=== PATIENT | female | born 1960 | race Caucasian/White ===

== ENCOUNTER 2016-06-18 19:05 | Inpatient (IN) | payer MEDICARE ==
[~2016-06-18] VITALS: Ht 180.3 cm; Wt 106.2 kg
[2016-06-18] VITALS (7 sets, daily range): O2SAT 91–96
[~2016-06-18 19:05] MED LIST: FOLIC ACID 11 MG/TA1 PO; LASIX 80MG TABL80 MG PO; LEVAQUIN 5500 MG/TA1 PO; LEVEMIR100 U/ML SQ; MULTIPLE VITAMI1 CAP PO; NEPHROCAP PO; NORCO 325 MG-51 TAB PO; NOVOLOG 100U100 U/M1 SQ; PRINIVIL40 MG PO; RENVELA800 MG PO; SENSIPAR30 MG PO; SENSIPAR60 MG PO; TYLENOL 325MG325 MG PO; VITAMIN C500 MG PO; ZESTRIL40 MG PO; ZOFRAN 4MG T4 MG/TAB PO; ZOLOFT 50MG50 MG PO
[2016-06-18] MEDS ORDERED: TAMIFLU 75MG75 MG PO (19:30)
[2016-06-18 20:18] LABS: BASO % 0.3 % (0.0-2.0); EOS % 0.6 % (0-4.0); GRAN # 4.4 (1.4-6.5); GRAN % 70.3 % (42.2-75.2); LYMPH # 1.1 (1.2-3.4); LYMPH % 16.8 % (20.0-51.0); MEAN CELL VOLUME 89 fl (80.0-100.0); MEAN CORPUSCULAR HGB CONC 33 g/dl (33.0-37.0); MEAN PLATELET VOLUME 9.5 fl (7.4-10.4); MONO # 0.7 (0.1-0.6); MONO % 11.7 % (1.7-9.3); PLATELET COUNT 220 K/mm3 (130-400); RED BLOOD COUNT 3.18 M/mm3 (4.10-5.30); REDCELL DISTRIBUTION WIDTH-CV 14.7 % (11.5-14.5); WHITE BLOOD COUNT 6.3 K/mm3 (4.8-10.8)
[2016-06-18 20:21] LABS: HEMATOCRIT 28.3 % (37.0-47.0); HEMOGLOBIN 9.3 g/dl (12.5-16.0); MEAN CORPUSCULAR HEMOGLOBIN 29 pg (27.0-31.0)
[2016-06-18 20:29] LABS: ADJUSTED CALCIUM 9.6 mg/dL (8.4-10.2); ALBUMIN 3.9 gm/dL (3.5-5.0); CALCIUM 9.5 mg/dL (8.4-10.2); CREATININE, serum 3.83 mg/dL (0.52-1.25); MAGNESIUM 1.9 mg/dL (1.6-2.3); PHOSPHOROUS 2.7 mg/dL (2.5-4.5); POTASSIUM 3.3 mmol/L (3.4-5.0); TOTAL PROTEIN 8.4 gm/dL (6.4-8.2)
[2016-06-18 20:48] LABS: TROPONIN-I 0.054 ng/mL (0.000-0.034)
[2016-06-19] VITALS (786 sets, daily range): BP systolic 115–167; BP diastolic 76–94; PULSE 70–126; TEMP 97–98.1; O2SAT 58–100
[2016-06-19 06:14] LABS: BASO % 0.4 % (0.0-2.0); EOS # 0.1 (0.0-0.7); EOS % 1.3 % (0-4.0); GRAN # 3.2 (1.4-6.5); LYMPH # 0.9 (1.2-3.4); LYMPH % 19.8 % (20.0-51.0); MEAN CELL VOLUME 90 fl (80.0-100.0); MEAN CORPUSCULAR HGB CONC 33 g/dl (33.0-37.0); MEAN PLATELET VOLUME 9.4 fl (7.4-10.4); MONO # 0.5 (0.1-0.6); MONO % 11.3 % (1.7-9.3); PLATELET COUNT 199 K/mm3 (130-400); RED BLOOD COUNT 3.05 M/mm3 (4.10-5.30); WHITE BLOOD COUNT 4.7 K/mm3 (4.8-10.8)
[2016-06-19 06:23] LABS: HEMATOCRIT 27.3 % (37.0-47.0); HEMOGLOBIN 8.9 g/dl (12.5-16.0); MEAN CORPUSCULAR HEMOGLOBIN 29 pg (27.0-31.0)
[2016-06-19 06:25] LABS: CALCIUM 9.2 mg/dL (8.4-10.2)
[2016-06-19 06:26] LABS: CREATININE, serum 4.31 mg/dL (0.52-1.25)
[2016-06-20] VITALS (557 sets, daily range): BP systolic 99–130; BP diastolic 59–97; PULSE 54–96; TEMP 97–98.8; O2SAT 78–100
[2016-06-20 05:55] LABS: INR 1.8 (0.8-3.0); PROTHROMBIN TIME 20.1 SECONDS (9.7-12.8)
[2016-06-20 05:58] LABS: PARTIAL THROMBOPLASTIN TIME 41.8 SECONDS (26.0-37.0)
[2016-06-20 06:04] LABS: BASO % 0.6 % (0.0-2.0); CALCIUM 8.2 mg/dL (8.4-10.2); CREATININE, serum 3.69 mg/dL (0.52-1.25); EOS # 0.1 (0.0-0.7); EOS % 1.1 % (0-4.0); GRAN # 3.1 (1.4-6.5); GRAN % 66.7 % (42.2-75.2); LYMPH # 0.8 (1.2-3.4); LYMPH % 17.1 % (20.0-51.0); MEAN CELL VOLUME 91 fl (80.0-100.0); MEAN CORPUSCULAR HGB CONC 32 g/dl (33.0-37.0); MEAN PLATELET VOLUME 9.9 fl (7.4-10.4); MONO # 0.7 (0.1-0.6); MONO % 14.3 % (1.7-9.3); PLATELET COUNT 195 K/mm3 (130-400); POTASSIUM 3.5 mmol/L (3.4-5.0); RED BLOOD COUNT 3.07 M/mm3 (4.10-5.30); REDCELL DISTRIBUTION WIDTH-CV 14.9 % (11.5-14.5); WHITE BLOOD COUNT 4.6 K/mm3 (4.8-10.8)
[2016-06-20 06:17] LABS: HEMATOCRIT 27.9 % (37.0-47.0); HEMOGLOBIN 8.9 g/dl (12.5-16.0); MEAN CORPUSCULAR HEMOGLOBIN 29 pg (27.0-31.0)
[2016-06-21] VITALS (737 sets, daily range): BP systolic 104–134; BP diastolic 48–77; PULSE 72–99; TEMP 96.9–98.1; O2SAT 72–100
[2016-06-21 06:25] LABS: ALBUMIN 3.4 gm/dL (3.5-5.0); CALCIUM 8.1 mg/dL (8.4-10.2); CREATININE, serum 2.91 mg/dL (0.52-1.25); PHOSPHOROUS 2.5 mg/dL (2.5-4.5); POTASSIUM 3.8 mmol/L (3.4-5.0)
[2016-06-22] VITALS (475 sets, daily range): BP systolic 93–127; BP diastolic 59–73; PULSE 77–109; TEMP 96.6–98.3; O2SAT 82–100
[2016-06-22 06:18] LABS: ALBUMIN 3.5 gm/dL (3.5-5.0); PHOSPHOROUS 1.8 mg/dL (2.5-4.5); POTASSIUM 3.7 mmol/L (3.4-5.0)
[2016-06-22 06:30] LABS: CREATININE, serum 3.93 mg/dL (0.52-1.25)
[2016-06-23 00:20] VITALS: BP 117/59; PULSE 103; TEMP 98.4
[2016-06-23 03:56] VITALS: BP 108/52; PULSE 106; TEMP 98.1
[2016-06-23 07:21] VITALS: BP 121/64; PULSE 107; TEMP 97.6
[2016-06-23 07:47] LABS: BASO % 0.5 % (0.0-2.0); EOS % 0.6 % (0-4.0); GRAN # 4.6 (1.4-6.5); GRAN % 71.5 % (42.2-75.2); LYMPH # 0.9 (1.2-3.4); LYMPH % 13.7 % (20.0-51.0); MEAN CELL VOLUME 90 fl (80.0-100.0); MEAN CORPUSCULAR HGB CONC 32 g/dl (33.0-37.0); MEAN PLATELET VOLUME 10.4 fl (7.4-10.4); MONO # 0.8 (0.1-0.6); MONO % 13.1 % (1.7-9.3); PLATELET COUNT 194 K/mm3 (130-400); RED BLOOD COUNT 2.81 M/mm3 (4.10-5.30); REDCELL DISTRIBUTION WIDTH-CV 15.3 % (11.5-14.5); WHITE BLOOD COUNT 6.4 K/mm3 (4.8-10.8)
[2016-06-23 07:58] LABS: ALBUMIN 3.2 gm/dL (3.5-5.0); CALCIUM 7.8 mg/dL (8.4-10.2); CREATININE, serum 3.58 mg/dL (0.52-1.25); PHOSPHOROUS 1.8 mg/dL (2.5-4.5); POTASSIUM 3.5 mmol/L (3.4-5.0)
[2016-06-23 08:01] LABS: HEMATOCRIT 25.2 % (37.0-47.0); HEMOGLOBIN 8.1 g/dl (12.5-16.0); MEAN CORPUSCULAR HEMOGLOBIN 29 pg (27.0-31.0)
[2016-06-23 11:10] VITALS: BP 103/62; PULSE 80; TEMP 97.8
[2016-06-23 16:09] VITALS: BP 109/62; PULSE 68; PULSE 88; TEMP 97.9
[2016-06-23 18:03] LABS: PH 8 (5-8); URINE APPEARANCE Turbid; URINE COLOR Straw; URINE GLUCOSE Negative (NEGATIVE)
[2016-06-23 18:04] LABS: URINE BILIRUBIN Negative (NEGATIVE); URINE BLOOD 3+ (NEGATIVE); URINE KETONE Negative (NEGATIVE); URINE UROBILINOGEN Negative (NEGATIVE)
[2016-06-23 18:05] LABS: URINE RBC >50 /hpf; URINE WBC >50 /hpf
[2016-06-23 18:06] LABS: SQUAMOUS EPITHELIAL 0-2 /hpf; URINE BACTERIA Occasional /hpf
[2016-06-23 19:34] VITALS: BP 124/62; PULSE 108; TEMP 97.9
[2016-06-24 00:31] VITALS: BP 122/70; PULSE 106; TEMP 98
[2016-06-24 03:39] VITALS: BP 125/69; PULSE 105; TEMP 96.9
[2016-06-24 07:42] LABS: BASO % 0.6 % (0.0-2.0); EOS # 0.1 (0.0-0.7); EOS % 0.9 % (0-4.0); GRAN # 4.6 (1.4-6.5); GRAN % 72.4 % (42.2-75.2); LYMPH # 0.9 (1.2-3.4); LYMPH % 14.6 % (20.0-51.0); MEAN CELL VOLUME 89 fl (80.0-100.0); MEAN CORPUSCULAR HGB CONC 32 g/dl (33.0-37.0); MEAN PLATELET VOLUME 10.7 fl (7.4-10.4); MONO # 0.7 (0.1-0.6); MONO % 10.7 % (1.7-9.3); PLATELET COUNT 217 K/mm3 (130-400); RED BLOOD COUNT 2.92 M/mm3 (4.10-5.30); REDCELL DISTRIBUTION WIDTH-CV 15.6 % (11.5-14.5); WHITE BLOOD COUNT 6.4 K/mm3 (4.8-10.8)
[2016-06-24 07:56] LABS: ALBUMIN 3.5 gm/dL (3.5-5.0); CALCIUM 7.6 mg/dL (8.4-10.2); PHOSPHOROUS 2.1 mg/dL (2.5-4.5); POTASSIUM 3.7 mmol/L (3.4-5.0)
[2016-06-24 07:57] LABS: CREATININE, serum 4.53 mg/dL (0.52-1.25)
[2016-06-24 08:15] LABS: HEMATOCRIT 25.9 % (37.0-47.0); HEMOGLOBIN 8.4 g/dl (12.5-16.0); MEAN CORPUSCULAR HEMOGLOBIN 29 pg (27.0-31.0)
[2016-06-24 11:07] VITALS: BP 134/70; PULSE 102; TEMP 97.1
[2016-06-24 16:49] VITALS: BP 103/57; PULSE 100; TEMP 98.3
[2016-06-24 20:54] VITALS: BP 115/62; PULSE 104; TEMP 97.9
[2016-06-25] VITALS (7 sets, daily range): BP systolic 93–126; BP diastolic 42–84; PULSE 102–106; TEMP 97.4–98
[2016-06-25 07:44] LABS: BASO % 0.5 % (0.0-2.0); EOS # 0.1 (0.0-0.7); EOS % 1.1 % (0-4.0); GRAN # 4.6 (1.4-6.5); LYMPH # 0.9 (1.2-3.4); LYMPH % 13.5 % (20.0-51.0); MEAN CELL VOLUME 89 fl (80.0-100.0); MEAN CORPUSCULAR HGB CONC 32 g/dl (33.0-37.0); MEAN PLATELET VOLUME 10.7 fl (7.4-10.4); MONO # 0.8 (0.1-0.6); MONO % 12.8 % (1.7-9.3); PLATELET COUNT 216 K/mm3 (130-400); RED BLOOD COUNT 2.83 M/mm3 (4.10-5.30); REDCELL DISTRIBUTION WIDTH-CV 15.9 % (11.5-14.5); WHITE BLOOD COUNT 6.5 K/mm3 (4.8-10.8)
[2016-06-25 08:05] LABS: HEMATOCRIT 25.1 % (37.0-47.0); HEMOGLOBIN 8.1 g/dl (12.5-16.0); MEAN CORPUSCULAR HEMOGLOBIN 29 pg (27.0-31.0)
[2016-06-25 08:08] LABS: ALBUMIN 3.4 gm/dL (3.5-5.0); CALCIUM 7.5 mg/dL (8.4-10.2); CREATININE, serum 3.53 mg/dL (0.52-1.25); PHOSPHOROUS 2.5 mg/dL (2.5-4.5); POTASSIUM 4.1 mmol/L (3.4-5.0)
[2016-06-26 04:32] VITALS: BP 119/58; PULSE 104; TEMP 97.6
[2016-06-26 07:36] VITALS: BP 117/53; PULSE 104; TEMP 97.9
[2016-06-26 07:51] LABS: BASO % 0.3 % (0.0-2.0); EOS # 0.1 (0.0-0.7); EOS % 0.8 % (0-4.0); GRAN # 4.4 (1.4-6.5); LYMPH # 0.8 (1.2-3.4); LYMPH % 13.2 % (20.0-51.0); MEAN CELL VOLUME 88 fl (80.0-100.0); MEAN CORPUSCULAR HGB CONC 32 g/dl (33.0-37.0); MEAN PLATELET VOLUME 10.1 fl (7.4-10.4); MONO # 0.7 (0.1-0.6); PLATELET COUNT 214 K/mm3 (130-400); RED BLOOD COUNT 2.93 M/mm3 (4.10-5.30); REDCELL DISTRIBUTION WIDTH-CV 16.2 % (11.5-14.5); WHITE BLOOD COUNT 6.1 K/mm3 (4.8-10.8)
[2016-06-26 07:57] LABS: HEMATOCRIT 25.9 % (37.0-47.0); HEMOGLOBIN 8.3 g/dl (12.5-16.0); MEAN CORPUSCULAR HEMOGLOBIN 28 pg (27.0-31.0)
[2016-06-26 08:09] LABS: ALBUMIN 3.5 gm/dL (3.5-5.0); CALCIUM 7.6 mg/dL (8.4-10.2); POTASSIUM 4.4 mmol/L (3.4-5.0)
[2016-06-26 08:10] LABS: CREATININE, serum 4.4 mg/dL (0.52-1.25)
[2016-06-26 11:45] VITALS: BP 129/61; PULSE 103; TEMP 97.4
[2016-06-26 15:06] VITALS: BP 101/54; PULSE 103; TEMP 97.8
[2016-06-26 20:00] VITALS: BP 120/59; PULSE 103; TEMP 97.5
[2016-06-27 00:04] VITALS: BP 115/70; PULSE 103; TEMP 97.7
[2016-06-27 03:51] VITALS: BP 127/72; PULSE 102; TEMP 97.8
[2016-06-27 07:09] LABS: BASO % 0.3 % (0.0-2.0); EOS # 0.1 (0.0-0.7); EOS % 0.8 % (0-4.0); GRAN # 4.5 (1.4-6.5); GRAN % 71.8 % (42.2-75.2); LYMPH # 0.8 (1.2-3.4); LYMPH % 13.2 % (20.0-51.0); MEAN CELL VOLUME 87 fl (80.0-100.0); MEAN CORPUSCULAR HGB CONC 32 g/dl (33.0-37.0); MEAN PLATELET VOLUME 10.1 fl (7.4-10.4); MONO # 0.8 (0.1-0.6); MONO % 13.3 % (1.7-9.3); PLATELET COUNT 218 K/mm3 (130-400); RED BLOOD COUNT 2.97 M/mm3 (4.10-5.30); WHITE BLOOD COUNT 6.3 K/mm3 (4.8-10.8)
[2016-06-27 07:26] LABS: ALBUMIN 3.6 gm/dL (3.5-5.0); CALCIUM 7.5 mg/dL (8.4-10.2); POTASSIUM 4.8 mmol/L (3.4-5.0)
[2016-06-27 07:56] LABS: HEMATOCRIT 25.9 % (37.0-47.0); HEMOGLOBIN 8.4 g/dl (12.5-16.0); MEAN CORPUSCULAR HEMOGLOBIN 28 pg (27.0-31.0)
[2016-06-27 07:59] VITALS: BP 125/65; PULSE 101; TEMP 97.7
[2016-06-27 08:00] LABS: CREATININE, serum 5.45 mg/dL (0.52-1.25)
[2016-06-27 09:56] VITALS: BP 116/62
[2016-06-27] MEDS ORDERED: NORMODYNE200 MG PO (10:13)
[2016-06-27] MEDS ORDERED: ELIQUIS 5MG PO (10:13)
[2016-06-27] MEDS ORDERED: ZESTRIL2.5 MG PO (10:14)
[2016-06-27] MEDS ORDERED: TIAZAC240 MG PO (10:15)
[2016-06-27 12:21] VITALS: BP 128/74; PULSE 100; TEMP 97.6
== END 2016-06-27 17:40 | disposition home or self-care (01) | DRG 308 ==
LOC: COL.ER 19:05 → IMCU 22:48 → MEDICAL 06-22 15:23
PROVIDERS: Emergency Medicine; Internal Medicine; Internal Medicine Cardiovascular Disease; Internal Medicine Nephrology
PROC: 5A1D60Z (ICD-10-PCS; principal; 2016-06-19)
DX: I48.92 Unspecified atrial flutter (principal); N18.6 End stage renal disease; I12.0 Hypertensive chronic kidney disease with stage 5 chronic kidney disease or end stage renal disease; N39.0 Urinary tract infection, site not specified; I48.91 Unspecified atrial fibrillation; E11.22 Type 2 diabetes mellitus with diabetic chronic kidney disease; Z99.2 Dependence on renal dialysis; Z87.891 Personal history of nicotine dependence; Z79.4 Long term (current) use of insulin; E83.39 Other disorders of phosphorus metabolism; I51.3 Intracardiac thrombosis, not elsewhere classified; J11.1 Influenza due to unidentified influenza virus with other respiratory manifestations
CPT/HCPCS: G9654; J0153; J0882; J1650; J1815; J2250; J2704; J2916; J3010; J7050; Q9967

== ENCOUNTER 2016-07-08 16:23 | Inpatient (IN) | payer MEDICARE, MEDICAID ==
[~2016-07-08] VITALS: Ht 180.3 cm; Wt 100.8 kg
[~2016-07-08 16:23] MED LIST changes: +ELIQUIS 5MG PO; +NORMODYNE200 MG PO; +TAMIFLU 75MG75 MG PO; +TIAZAC240 MG PO; +ZESTRIL2.5 MG PO
[2016-07-08 17:12] LABS: BASO % 0.3 % (0.0-2.0); EOS # 0.1 (0.0-0.7); EOS % 0.8 % (0-4.0); GRAN # 4.8 (1.4-6.5); GRAN % 79.5 % (42.2-75.2); LYMPH # 0.7 (1.2-3.4); LYMPH % 11.7 % (20.0-51.0); MEAN CELL VOLUME 92 fl (80.0-100.0); MEAN CORPUSCULAR HGB CONC 32 g/dl (33.0-37.0); MEAN PLATELET VOLUME 9.8 fl (7.4-10.4); MONO # 0.5 (0.1-0.6); MONO % 7.4 % (1.7-9.3); PLATELET COUNT 192 K/mm3 (130-400); RED BLOOD COUNT 3.03 M/mm3 (4.10-5.30); REDCELL DISTRIBUTION WIDTH-CV 16.9 % (11.5-14.5); WHITE BLOOD COUNT 6.1 K/mm3 (4.8-10.8)
[2016-07-08 17:13] LABS: HEMATOCRIT 27.9 % (37.0-47.0); HEMOGLOBIN 8.9 g/dl (12.5-16.0); MEAN CORPUSCULAR HEMOGLOBIN 29 pg (27.0-31.0)
[2016-07-08 17:23] LABS: ADJUSTED CALCIUM 7.7 mg/dL (8.4-10.2); BILIRUBIN,TOTAL 1.9 mg/dL (0.0-1.0); CALCIUM 7.7 mg/dL (8.4-10.2); CREATININE, serum 2.74 mg/dL (0.52-1.25); MAGNESIUM 1.7 mg/dL (1.6-2.3); PHOSPHOROUS 2.6 mg/dL (2.5-4.5); POTASSIUM 3.8 mmol/L (3.4-5.0); TOTAL PROTEIN 8.5 gm/dL (6.4-8.2)
[2016-07-08 21:03] VITALS: BP 134/72; PULSE 113; TEMP 98.2
[2016-07-09 00:20] VITALS: BP 135/74; PULSE 111; TEMP 97.7
[2016-07-09 04:10] VITALS: BP 136/68; PULSE 110; TEMP 97.2
[2016-07-09 11:30] VITALS: BP 137/71; PULSE 109; TEMP 97.7
[2016-07-09 13:17] LABS: BASO % 0.4 % (0.0-2.0); EOS # 0.1 (0.0-0.7); EOS % 1.8 % (0-4.0); GRAN # 3.3 (1.4-6.5); GRAN % 74.1 % (42.2-75.2); LYMPH # 0.7 (1.2-3.4); MEAN CELL VOLUME 95 fl (80.0-100.0); MEAN CORPUSCULAR HGB CONC 31 g/dl (33.0-37.0); MEAN PLATELET VOLUME 9.7 fl (7.4-10.4); MONO # 0.4 (0.1-0.6); MONO % 8.5 % (1.7-9.3); PLATELET COUNT 179 K/mm3 (130-400); WHITE BLOOD COUNT 4.5 K/mm3 (4.8-10.8)
[2016-07-09 13:20] LABS: HEMATOCRIT 28.4 % (37.0-47.0); HEMOGLOBIN 8.9 g/dl (12.5-16.0); MEAN CORPUSCULAR HEMOGLOBIN 30 pg (27.0-31.0)
[2016-07-09 13:52] LABS: ALBUMIN 3.8 gm/dL (3.5-5.0); CALCIUM 8.4 mg/dL (8.4-10.2); CREATININE, serum 1.81 mg/dL (0.52-1.25); PHOSPHOROUS 2.6 mg/dL (2.5-4.5); POTASSIUM 3.6 mmol/L (3.4-5.0)
[2016-07-09 16:27] VITALS: BP 132/67; PULSE 107; TEMP 97.4
[2016-07-09 20:09] VITALS: BP 118/59; PULSE 108; TEMP 97.6
[2016-07-10 00:22] VITALS: BP 123/77; PULSE 109; TEMP 98.3
[2016-07-10 03:22] VITALS: BP 125/76; PULSE 108; TEMP 98.1
[2016-07-10 08:03] LABS: BASO % 0.4 % (0.0-2.0); EOS # 0.1 (0.0-0.7); EOS % 1.8 % (0-4.0); GRAN # 3.6 (1.4-6.5); GRAN % 74.1 % (42.2-75.2); LYMPH # 0.8 (1.2-3.4); LYMPH % 15.5 % (20.0-51.0); MEAN CELL VOLUME 94 fl (80.0-100.0); MEAN CORPUSCULAR HGB CONC 31 g/dl (33.0-37.0); MEAN PLATELET VOLUME 10.1 fl (7.4-10.4); MONO # 0.4 (0.1-0.6); MONO % 7.8 % (1.7-9.3); PLATELET COUNT 176 K/mm3 (130-400); REDCELL DISTRIBUTION WIDTH-CV 17.1 % (11.5-14.5); WHITE BLOOD COUNT 4.9 K/mm3 (4.8-10.8)
[2016-07-10 08:05] LABS: HEMATOCRIT 28.3 % (37.0-47.0); HEMOGLOBIN 8.9 g/dl (12.5-16.0); MEAN CORPUSCULAR HEMOGLOBIN 30 pg (27.0-31.0)
[2016-07-10 08:13] LABS: ALBUMIN 3.6 gm/dL (3.5-5.0); CALCIUM 8.1 mg/dL (8.4-10.2); CREATININE, serum 3.04 mg/dL (0.52-1.25); PHOSPHOROUS 3.6 mg/dL (2.5-4.5); POTASSIUM 4.3 mmol/L (3.4-5.0)
[2016-07-10 11:15] VITALS: BP 144/89; PULSE 111; TEMP 97.9
== END 2016-07-10 12:25 | disposition home or self-care (01) | DRG 640 ==
LOC: COL.ER 16:23 → MEDICAL 19:18
PROVIDERS: Family Medicine; Internal Medicine Nephrology
PROC: 5A1D60Z (ICD-10-PCS; principal; 2016-07-09)
DX: E87.70 Fluid overload, unspecified (principal); N18.6 End stage renal disease; I12.0 Hypertensive chronic kidney disease with stage 5 chronic kidney disease or end stage renal disease; E11.22 Type 2 diabetes mellitus with diabetic chronic kidney disease; I48.91 Unspecified atrial fibrillation; D63.1 Anemia in chronic kidney disease; E83.51 Hypocalcemia; R20.0 Anesthesia of skin; E83.39 Other disorders of phosphorus metabolism; Z89.512 Acquired absence of left leg below knee; Z87.891 Personal history of nicotine dependence; Z79.4 Long term (current) use of insulin; Z99.2 Dependence on renal dialysis
CPT/HCPCS: J0882; J1815; J2405; J7030; Q9967

== ENCOUNTER 2016-07-28 07:58 | Inpatient (IN) | payer MEDICARE ==
[2016-07-28] VITALS (11 sets, daily range): BP systolic 105–136; BP diastolic 59–78; PULSE 72–113; TEMP 97.4–98.6
[~2016-07-28] VITALS: Ht 180.3 cm; Wt 100.2 kg
[2016-07-28 08:41] LABS: BASO % 0.6 % (0.0-2.0); EOS % 0.3 % (0-4.0); GRAN # 2.5 (1.4-6.5); GRAN % 70.4 % (42.2-75.2); LYMPH # 0.5 (1.2-3.4); LYMPH % 14.2 % (20.0-51.0); MEAN CELL VOLUME 93 fl (80.0-100.0); MEAN CORPUSCULAR HGB CONC 33 g/dl (33.0-37.0); MEAN PLATELET VOLUME 9.9 fl (7.4-10.4); MONO # 0.5 (0.1-0.6); MONO % 14.2 % (1.7-9.3); PLATELET COUNT 187 K/mm3 (130-400); RED BLOOD COUNT 2.71 M/mm3 (4.10-5.30); REDCELL DISTRIBUTION WIDTH-CV 16.4 % (11.5-14.5); WHITE BLOOD COUNT 3.6 K/mm3 (4.8-10.8)
[2016-07-28 08:42] LABS: HEMATOCRIT 25.2 % (37.0-47.0); HEMOGLOBIN 8.2 g/dl (12.5-16.0); MEAN CORPUSCULAR HEMOGLOBIN 30 pg (27.0-31.0)
[2016-07-28] MEDS ORDERED: ZESTRIL40 MG PO (08:44)
[2016-07-28 08:48] LABS: CALCIUM 8.2 mg/dL (8.4-10.2); CREATININE, serum 3.43 mg/dL (0.52-1.25); POTASSIUM 3.5 mmol/L (3.4-5.0)
[2016-07-28 09:16] LABS: INR 1.8 (0.8-3.0); PROTHROMBIN TIME 20.7 SECONDS (9.7-12.8)
[2016-07-28 13:21] LABS: ALBUMIN 3.3 gm/dL (3.5-5.0); BILIRUBIN,TOTAL 2.5 mg/dL (0.0-1.0); MAGNESIUM 1.6 mg/dL (1.6-2.3); TOTAL PROTEIN 7.4 gm/dL (6.4-8.2)
[2016-07-28 13:37] LABS: BILIRUBIN,DIRECT 1.9 mg/dL (0.0-0.4)
[2016-07-29 03:39] VITALS: BP 120/61; PULSE 79; TEMP 98.2
[2016-07-29 07:23] LABS: INR 1.7 (0.8-3.0); PROTHROMBIN TIME 18.7 SECONDS (9.7-12.8)
[2016-07-29 07:24] VITALS: BP 123/61; PULSE 71
[2016-07-29 07:28] LABS: MEAN CELL VOLUME 95 fl (80.0-100.0); MEAN CORPUSCULAR HGB CONC 31 g/dl (33.0-37.0); MEAN PLATELET VOLUME 10.5 fl (7.4-10.4); PLATELET COUNT 178 K/mm3 (130-400); RED BLOOD COUNT 2.89 M/mm3 (4.10-5.30); REDCELL DISTRIBUTION WIDTH-CV 16.4 % (11.5-14.5); WHITE BLOOD COUNT 4.1 K/mm3 (4.8-10.8)
[2016-07-29 07:30] LABS: HEMATOCRIT 27.4 % (37.0-47.0); HEMOGLOBIN 8.5 g/dl (12.5-16.0); MEAN CORPUSCULAR HEMOGLOBIN 29 pg (27.0-31.0)
[2016-07-29 11:15] VITALS: BP 97/52; PULSE 69; TEMP 98
[2016-07-29 19:23] VITALS: BP 131/62; PULSE 76; TEMP 98.1
[2016-07-29 23:39] VITALS: BP 122/73; PULSE 72; TEMP 97.9
[2016-07-30 03:55] VITALS: BP 119/62; PULSE 68; TEMP 98.3
[2016-07-30 07:48] LABS: MEAN CELL VOLUME 96 fl (80.0-100.0); MEAN CORPUSCULAR HGB CONC 31 g/dl (33.0-37.0); MEAN PLATELET VOLUME 10.5 fl (7.4-10.4); PLATELET COUNT 168 K/mm3 (130-400); RED BLOOD COUNT 2.89 M/mm3 (4.10-5.30); REDCELL DISTRIBUTION WIDTH-CV 16.2 % (11.5-14.5); WHITE BLOOD COUNT 3.5 K/mm3 (4.8-10.8)
[2016-07-30 08:01] LABS: INR 1.6 (0.8-3.0); PROTHROMBIN TIME 18.5 SECONDS (9.7-12.8)
[2016-07-30 08:04] LABS: HEMATOCRIT 27.7 % (37.0-47.0); HEMOGLOBIN 8.7 g/dl (12.5-16.0); MEAN CORPUSCULAR HEMOGLOBIN 30 pg (27.0-31.0)
[2016-07-30 08:15] VITALS: BP 128/66; PULSE 66; TEMP 97.8
[2016-07-30 08:21] LABS: CALCIUM 8.1 mg/dL (8.4-10.2); CREATININE, serum 3.85 mg/dL (0.52-1.25); POTASSIUM 4.1 mmol/L (3.4-5.0)
[2016-07-30] MEDS ORDERED: BETAPACE 80MG80 MG PO (11:53)
[2016-07-30] MEDS ORDERED: IMODIUM A-D2 MG PO (11:54)
[2016-07-30 12:07] VITALS: BP 116/64; PULSE 66; TEMP 97.8
== END 2016-07-30 14:02 | disposition home or self-care (01) | DRG 308 ==
LOC: EUO 07:58 → COL.RAD 08:00 → EUO 08:00 → MEDICAL 11:49 → EUO 12:25 → MEDICAL 07-30 14:02
PROVIDERS: Internal Medicine Cardiovascular Disease
PROC: 5A1D00Z (ICD-10-PCS; principal; 2016-07-29)
DX: I48.0 Paroxysmal atrial fibrillation (principal); N18.6 End stage renal disease; I12.0 Hypertensive chronic kidney disease with stage 5 chronic kidney disease or end stage renal disease; E11.22 Type 2 diabetes mellitus with diabetic chronic kidney disease; D63.1 Anemia in chronic kidney disease; Z99.2 Dependence on renal dialysis; Z82.49 Family history of ischemic heart disease and other diseases of the circulatory system; Z87.891 Personal history of nicotine dependence; Z89.512 Acquired absence of left leg below knee
CPT/HCPCS: J1815; J2250; J2704; J3010

== ENCOUNTER 2016-12-05 15:07 | Inpatient (IN) | payer MEDICARE ==
[~2016-12-05] VITALS: Ht 180.3 cm; Wt 101.8 kg
[~2016-12-05 15:07] MED LIST changes: +BETAPACE 80MG80 MG PO; +IMODIUM A-D2 MG PO
[2016-12-05] MEDS ORDERED: NORVASC 10MG10 MG PO (15:26)
[2016-12-05] MEDS ORDERED: PRILOSEC 20MG20 MG PO (15:27)
[2016-12-05] MEDS ORDERED: NORMODYNE200 MG PO (15:29)
[2016-12-05] MEDS ORDERED: ELIQUIS 5MG PO (15:30)
[2016-12-05 15:45] LABS: ADJUSTED CALCIUM 9.3 mg/dL (8.4-10.2); BILIRUBIN,TOTAL 2.7 mg/dL (0.0-1.0); CALCIUM 9.3 mg/dL (8.4-10.2); CREATININE, serum 2.09 mg/dL (0.52-1.25); POTASSIUM 3.2 mmol/L (3.4-5.0); TOTAL PROTEIN 8.1 gm/dL (6.4-8.2)
[2016-12-05 15:48] LABS: INR 1.7 (0.8-3.0); PROTHROMBIN TIME 19.7 SECONDS (9.7-12.8)
[2016-12-05 15:49] LABS: BASO % 0.3 % (0.0-2.0); EOS # 0.1 (0.0-0.7); EOS % 1.4 % (0-4.0); GRAN # 2.5 (1.4-6.5); GRAN % 71.1 % (42.2-75.2); LYMPH # 0.5 (1.2-3.4); LYMPH % 15.6 % (20.0-51.0); MEAN CELL VOLUME 80 fl (80.0-100.0); MEAN CORPUSCULAR HGB CONC 33 g/dl (33.0-37.0); MEAN PLATELET VOLUME 9.8 fl (7.4-10.4); MONO # 0.4 (0.1-0.6); PLATELET COUNT 186 K/mm3 (130-400); RED BLOOD COUNT 2.28 M/mm3 (4.10-5.30); REDCELL DISTRIBUTION WIDTH-CV 20.3 % (11.5-14.5); WHITE BLOOD COUNT 3.5 K/mm3 (4.8-10.8)
[2016-12-05 15:53] LABS: HEMATOCRIT 18.3 % (37.0-47.0); MEAN CORPUSCULAR HEMOGLOBIN 26 pg (27.0-31.0)
[2016-12-05 18:17] VITALS: BP 126/53; PULSE 77; TEMP 97.6
[2016-12-05 19:51] VITALS: BP 101/57; PULSE 80; TEMP 97.9
[2016-12-05 23:41] VITALS: BP 129/59; PULSE 72; TEMP 97.9
[2016-12-05 23:56] VITALS: BP 139/60; PULSE 73; TEMP 97.9
[2016-12-06] VITALS (17 sets, daily range): BP systolic 104–147; BP diastolic 54–73; PULSE 65–79; TEMP 97–98.1
[2016-12-06 08:37] LABS: MEAN CELL VOLUME 81 fl (80.0-100.0); MEAN CORPUSCULAR HGB CONC 33 g/dl (33.0-37.0); MEAN PLATELET VOLUME 9.8 fl (7.4-10.4); PLATELET COUNT 180 K/mm3 (130-400); RED BLOOD COUNT 2.47 M/mm3 (4.10-5.30); REDCELL DISTRIBUTION WIDTH-CV 19.3 % (11.5-14.5); WHITE BLOOD COUNT 3.4 K/mm3 (4.8-10.8)
[2016-12-06 08:44] LABS: HEMATOCRIT 19.9 % (37.0-47.0); HEMOGLOBIN 6.6 g/dl (12.5-16.0); MEAN CORPUSCULAR HEMOGLOBIN 27 pg (27.0-31.0)
[2016-12-06 08:45] LABS: ADD PATHOLOGY DIFF REVIEW NO
[2016-12-06 08:46] LABS: ALBUMIN 3.6 gm/dL (3.5-5.0); CREATININE, serum 2.12 mg/dL (0.52-1.25); PHOSPHOROUS 1.8 mg/dL (2.5-4.5)
[2016-12-06 08:53] LABS: POTASSIUM 2.7 mmol/L (3.4-5.0)
[2016-12-06 09:15] LABS: INR 1.6 (0.8-3.0); PROTHROMBIN TIME 17.8 SECONDS (9.7-12.8)
[2016-12-06 09:45] LABS: EOSINOPHIL 5 % (0-4); NEUTROPHILS 77 % (42.0-75.2); PLATELET ESTIMATE NORMAL (NORMAL); TOTAL CELLS COUNTED 100
[2016-12-06 14:53] LABS: PERITONEAL -POLYMORPHONUCLEAR 3.8 % (0-25); PERITONEAL FLUID RBC 1000 /mm3 (0-0)
[2016-12-06 15:03] LABS: ALBUMIN 3.7 gm/dL (3.5-5.0); TOTAL PROTEIN 7.8 gm/dL (6.4-8.2)
[2016-12-07] VITALS (21 sets, daily range): BP systolic 106–151; BP diastolic 49–72; PULSE 59–72; TEMP 97.4–98.6
[2016-12-07 06:55] LABS: BASO % 0.3 % (0.0-2.0); EOS # 0.1 (0.0-0.7); EOS % 2.2 % (0-4.0); GRAN # 2.1 (1.4-6.5); GRAN % 64.3 % (42.2-75.2); LYMPH # 0.6 (1.2-3.4); LYMPH % 18.6 % (20.0-51.0); MEAN CELL VOLUME 81 fl (80.0-100.0); MEAN CORPUSCULAR HGB CONC 32 g/dl (33.0-37.0); MEAN PLATELET VOLUME 10.2 fl (7.4-10.4); MONO # 0.5 (0.1-0.6); MONO % 14.3 % (1.7-9.3); PLATELET COUNT 163 K/mm3 (130-400); RED BLOOD COUNT 2.65 M/mm3 (4.10-5.30); REDCELL DISTRIBUTION WIDTH-CV 19.5 % (11.5-14.5); WHITE BLOOD COUNT 3.2 K/mm3 (4.8-10.8)
[2016-12-07 06:58] LABS: HEMATOCRIT 21.4 % (37.0-47.0); HEMOGLOBIN 6.9 g/dl (12.5-16.0); MEAN CORPUSCULAR HEMOGLOBIN 26 pg (27.0-31.0)
[2016-12-07 07:11] LABS: ALBUMIN 3.4 gm/dL (3.5-5.0); CALCIUM 9.2 mg/dL (8.4-10.2); CREATININE, serum 2.44 mg/dL (0.52-1.25); PHOSPHOROUS 2.2 mg/dL (2.5-4.5); POTASSIUM 3.1 mmol/L (3.4-5.0)
[2016-12-08 00:28] VITALS: BP 134/56; PULSE 71; TEMP 97.8
[2016-12-08 04:37] VITALS: BP 138/65; PULSE 69; TEMP 98.3
[2016-12-08 06:40] LABS: BASO % 0.7 % (0.0-2.0); EOS # 0.1 (0.0-0.7); EOS % 1.5 % (0-4.0); GRAN # 2.9 (1.4-6.5); GRAN % 71.1 % (42.2-75.2); LYMPH # 0.7 (1.2-3.4); MEAN CELL VOLUME 82 fl (80.0-100.0); MEAN CORPUSCULAR HGB CONC 33 g/dl (33.0-37.0); MONO # 0.4 (0.1-0.6); MONO % 10.2 % (1.7-9.3); PLATELET COUNT 171 K/mm3 (130-400); RED BLOOD COUNT 3.05 M/mm3 (4.10-5.30); REDCELL DISTRIBUTION WIDTH-CV 18.8 % (11.5-14.5); WHITE BLOOD COUNT 4.1 K/mm3 (4.8-10.8)
[2016-12-08 06:44] LABS: HEMOGLOBIN 8.2 g/dl (12.5-16.0); MEAN CORPUSCULAR HEMOGLOBIN 27 pg (27.0-31.0)
[2016-12-08 06:55] LABS: ALBUMIN 3.5 gm/dL (3.5-5.0); CALCIUM 9.2 mg/dL (8.4-10.2); CREATININE, serum 2.45 mg/dL (0.52-1.25); PHOSPHOROUS 2.3 mg/dL (2.5-4.5); POTASSIUM 3.3 mmol/L (3.4-5.0)
[2016-12-08 07:53] VITALS: BP 139/55; PULSE 66; TEMP 97.8
[2016-12-08 11:38] VITALS: BP 126/62; PULSE 66; TEMP 97.8
[2016-12-08 16:41] VITALS: BP 135/57; PULSE 69; TEMP 98.6
[2016-12-08 20:18] VITALS: BP 144/63; PULSE 69; TEMP 97.7
[2016-12-09 00:21] VITALS: BP 122/60; PULSE 68; TEMP 98.1
[2016-12-09 03:48] VITALS: BP 124/64; PULSE 71; TEMP 98.3
[2016-12-09 07:01] LABS: BASO % 0.5 % (0.0-2.0); EOS # 0.1 (0.0-0.7); EOS % 1.6 % (0-4.0); GRAN % 71.1 % (42.2-75.2); LYMPH # 0.7 (1.2-3.4); LYMPH % 15.5 % (20.0-51.0); MEAN CELL VOLUME 81 fl (80.0-100.0); MEAN CORPUSCULAR HGB CONC 33 g/dl (33.0-37.0); MEAN PLATELET VOLUME 9.8 fl (7.4-10.4); MONO # 0.5 (0.1-0.6); MONO % 10.6 % (1.7-9.3); PLATELET COUNT 179 K/mm3 (130-400); RED BLOOD COUNT 3.12 M/mm3 (4.10-5.30); REDCELL DISTRIBUTION WIDTH-CV 19.3 % (11.5-14.5); WHITE BLOOD COUNT 4.3 K/mm3 (4.8-10.8)
[2016-12-09 07:03] LABS: HEMATOCRIT 25.4 % (37.0-47.0); HEMOGLOBIN 8.4 g/dl (12.5-16.0); MEAN CORPUSCULAR HEMOGLOBIN 27 pg (27.0-31.0)
[2016-12-09 07:13] LABS: ALBUMIN 3.6 gm/dL (3.5-5.0); CALCIUM 9.1 mg/dL (8.4-10.2); CREATININE, serum 3.27 mg/dL (0.52-1.25); POTASSIUM 3.3 mmol/L (3.4-5.0)
[2016-12-09 07:58] VITALS: BP 118/49; PULSE 69; TEMP 97.5
[2016-12-09 11:01] VITALS: BP 129/59; PULSE 70; TEMP 97.5
[2016-12-09 16:15] VITALS: BP 126/49; PULSE 69; TEMP 98.1
[2016-12-09 20:54] VITALS: BP 141/61; PULSE 69; TEMP 97.4
[2016-12-10 00:06] VITALS: BP 142/62; PULSE 73; TEMP 97.9
[2016-12-10 04:32] VITALS: BP 137/64; PULSE 70; TEMP 97.8
[2016-12-10 07:19] VITALS: BP 121/51; PULSE 69; TEMP 97.7
[2016-12-10 07:24] LABS: BASO % 0.6 % (0.0-2.0); EOS # 0.1 (0.0-0.7); EOS % 1.9 % (0-4.0); GRAN # 3.4 (1.4-6.5); GRAN % 70.1 % (42.2-75.2); LYMPH # 0.8 (1.2-3.4); LYMPH % 16.3 % (20.0-51.0); MEAN CELL VOLUME 83 fl (80.0-100.0); MEAN CORPUSCULAR HGB CONC 32 g/dl (33.0-37.0); MEAN PLATELET VOLUME 10.2 fl (7.4-10.4); MONO # 0.5 (0.1-0.6); MONO % 10.7 % (1.7-9.3); PLATELET COUNT 175 K/mm3 (130-400); RED BLOOD COUNT 2.99 M/mm3 (4.10-5.30); REDCELL DISTRIBUTION WIDTH-CV 19.3 % (11.5-14.5); WHITE BLOOD COUNT 4.8 K/mm3 (4.8-10.8)
[2016-12-10 07:29] LABS: HEMATOCRIT 24.7 % (37.0-47.0); HEMOGLOBIN 7.9 g/dl (12.5-16.0); MEAN CORPUSCULAR HEMOGLOBIN 26 pg (27.0-31.0)
[2016-12-10 07:37] LABS: ALBUMIN 3.6 gm/dL (3.5-5.0); CALCIUM 9.3 mg/dL (8.4-10.2); CREATININE, serum 2.95 mg/dL (0.52-1.25); PHOSPHOROUS 1.8 mg/dL (2.5-4.5); POTASSIUM 3.6 mmol/L (3.4-5.0)
[2016-12-10 11:47] VITALS: BP 129/65; PULSE 61; TEMP 97.6
[2016-12-10 15:34] LABS: RETIC % 0.3 % (0.5-3.52)
[2016-12-10 15:46] VITALS: BP 113/49; PULSE 63; TEMP 98.3
[2016-12-10 20:09] VITALS: BP 137/66; PULSE 66; TEMP 97.8
[2016-12-11] VITALS (8 sets, daily range): BP systolic 111–129; BP diastolic 53–63; PULSE 64–72; TEMP 96.8–97.8
[2016-12-11 06:32] LABS: BASO % 0.6 % (0.0-2.0); EOS # 0.1 (0.0-0.7); GRAN # 3.7 (1.4-6.5); GRAN % 72.6 % (42.2-75.2); LYMPH # 0.8 (1.2-3.4); LYMPH % 15.3 % (20.0-51.0); MEAN CELL VOLUME 82 fl (80.0-100.0); MEAN CORPUSCULAR HGB CONC 32 g/dl (33.0-37.0); MEAN PLATELET VOLUME 10.1 fl (7.4-10.4); MONO # 0.4 (0.1-0.6); MONO % 8.7 % (1.7-9.3); PLATELET COUNT 187 K/mm3 (130-400); RED BLOOD COUNT 2.98 M/mm3 (4.10-5.30); REDCELL DISTRIBUTION WIDTH-CV 19.5 % (11.5-14.5)
[2016-12-11 06:38] LABS: HEMATOCRIT 24.5 % (37.0-47.0); HEMOGLOBIN 7.9 g/dl (12.5-16.0); MEAN CORPUSCULAR HEMOGLOBIN 27 pg (27.0-31.0)
[2016-12-11 06:39] LABS: ALBUMIN 3.5 gm/dL (3.5-5.0); CALCIUM 9.4 mg/dL (8.4-10.2); CREATININE, serum 3.75 mg/dL (0.52-1.25); PHOSPHOROUS 2.2 mg/dL (2.5-4.5); POTASSIUM 3.8 mmol/L (3.4-5.0)
[2016-12-12 03:46] VITALS: BP 108/58; PULSE 64; TEMP 97.8
[2016-12-12 07:52] VITALS: BP 113/55; PULSE 64; TEMP 97.4
[2016-12-12 13:22] VITALS: BP 132/58; PULSE 70; TEMP 98.4
[2016-12-12 15:59] VITALS: BP 122/52; PULSE 72; TEMP 97.9
[2016-12-12 20:24] VITALS: BP 128/52; PULSE 71; TEMP 98.1
[2016-12-12 23:47] VITALS: BP 116/59; PULSE 73; TEMP 98.5
[2016-12-13 04:15] VITALS: BP 115/50; PULSE 69; TEMP 97.8
[2016-12-13 07:14] VITALS: BP 123/59; PULSE 66; TEMP 97.7
[2016-12-13] MEDS ORDERED: ELIQUIS 5MG PO (08:30)
[2016-12-13] MEDS ORDERED: ULTRAM 50MG TAB50 MG PO (08:31)
[2016-12-14 11:36] LABS: ALBUMIN FRACTION 3.4 g/dL (2.6-4.5); ALBUMIN PERCENTAGE 46.5 % (48.7-61.8); ALPHA 1 FRACTION 0.3 g/dL (0.3-0.5); ALPHA 1 PERCENTAGE 4.3 % (3.4-8.3); ALPHA 2 FRACTION 0.7 g/dL (0.6-1.2); ALPHA 2 PERCENTAGE 8.9 % (8.4-17.5); BETA 1 FRACTION 0.3 g/dL (0.4-0.6); BETA 1 PERCENTAGE 4.5 % (5.4-8.9); BETA 2 FRACTION 0.5 g/dL (0.2-0.5); BETA 2 PERCENTAGE 6.4 % (3.8-7.7); GAMMA FRACTION 2.2 g/dL (0.4-1.7); GAMMA PERCENTAGE 29.4 % (8.1-23.0); SERUM PROTEIN TOTAL 7.3 g/dL (6.1-7.7)
[2016-12-14 19:33] LABS: KAPPA FREE LIGHT CHAIN-SERUM 54.7 mg/dL (()); KAPPA LAMBDA RATIO 1.66 (())
== END 2016-12-13 12:51 | disposition home or self-care (01) | DRG 947 ==
LOC: COL.ER 15:07 → MEDICAL 16:50
PROVIDERS: Emergency Medicine; Internal Medicine Gastroenterology; Internal Medicine Nephrology
PROC: 0W9G3ZX Drainage of Peritoneal Cavity, Percutaneous Approach, Diagnostic (ICD-10-PCS; principal; 2016-12-06)
PROC: 5A1D60Z (ICD-10-PCS; 2016-12-06)
PROC: 0DJ08ZZ Inspection of Upper Intestinal Tract, Via Natural or Artificial Opening Endoscopic (ICD-10-PCS; 2016-12-07)
PROC: 0DBL8ZX Excision of Transverse Colon, Via Natural or Artificial Opening Endoscopic, Diagnostic (ICD-10-PCS; 2016-12-07 14:15)
DX: R18.8 Other ascites (principal); N18.6 End stage renal disease; K92.1 Melena; I12.0 Hypertensive chronic kidney disease with stage 5 chronic kidney disease or end stage renal disease; N25.81 Secondary hyperparathyroidism of renal origin; D62 Acute posthemorrhagic anemia; E46 Unspecified protein-calorie malnutrition; D12.3 Benign neoplasm of transverse colon; K57.30 Diverticulosis of large intestine without perforation or abscess without bleeding; K64.1 Second degree hemorrhoids; I48.0 Paroxysmal atrial fibrillation; E11.22 Type 2 diabetes mellitus with diabetic chronic kidney disease; Z99.2 Dependence on renal dialysis; Z89.512 Acquired absence of left leg below knee; E11.42 Type 2 diabetes mellitus with diabetic polyneuropathy; E11.21 Type 2 diabetes mellitus with diabetic nephropathy; D63.1 Anemia in chronic kidney disease; Z79.4 Long term (current) use of insulin; Z87.891 Personal history of nicotine dependence; I08.1 Rheumatic disorders of both mitral and tricuspid valves; Z79.01 Long term (current) use of anticoagulants
CPT/HCPCS: J0882; J1815; J2250; J2704; J2916; J7030; J7050; P9016; Q9967

== ENCOUNTER 2017-01-17 06:10 | Outpatient (CLI) | payer MEDICARE, MEDICAID ==
[2017-01-17] VITALS (9 sets, daily range): BP systolic 117–151; BP diastolic 67–80; PULSE 85–90; TEMP 98.7
[~2017-01-17] VITALS: Ht 180.3 cm; Wt 127.0 kg
[~2017-01-17 06:10] MED LIST changes: +NORVASC 10MG10 MG PO; +PRILOSEC 20MG20 MG PO; +ULTRAM 50MG TAB50 MG PO
[2017-01-17] MEDS ORDERED: BETAPACE 80MG80 MG PO (07:35)
[2017-01-17] MEDS ORDERED: ZOFRAN 4MG T4 MG/TAB PO (07:44)
[2017-01-17] MEDS ORDERED: TYLENOL 500MG500 MG PO (07:44)
[2017-01-17] MEDS ORDERED: IMODIUM 2MG CAPS2 MG PO (07:46)
[2017-01-17 08:14] LABS: INR 1.4 (0.8-3.0); PROTHROMBIN TIME 15.8 SECONDS (9.7-12.8)
== END 2017-01-17 12:08 | disposition home or self-care (01) ==
LOC: EUO 06:10 → COL.CAR 06:30 → EUO 12:08
PROVIDERS: Radiology Diagnostic Radiology
DX: N18.6 End stage renal disease (principal)
CPT/HCPCS: Q9967

== ENCOUNTER 2017-02-06 18:14 | Emergency (ER) | payer MEDICARE, MEDICAID ==
[~2017-02-06] VITALS: Ht 180.3 cm; Wt 90.9 kg
[~2017-02-06 18:14] MED LIST changes: +IMODIUM 2MG CAPS2 MG PO; +TYLENOL 500MG500 MG PO
[2017-02-06 18:19] VITALS: TEMP 98.8
[2017-02-06 19:13] LABS: BASO % 0.4 % (0.0-2.0); EOS # 0.1 (0.0-0.7); EOS % 0.9 % (0-4.0); GRAN # 7.3 (1.4-6.5); GRAN % 86.2 % (42.2-75.2); LYMPH # 0.4 (1.2-3.4); MEAN CELL VOLUME 91 fl (80.0-100.0); MEAN CORPUSCULAR HGB CONC 33 g/dl (33.0-37.0); MEAN PLATELET VOLUME 9.5 fl (7.4-10.4); MONO # 0.6 (0.1-0.6); MONO % 7.1 % (1.7-9.3); PLATELET COUNT 217 K/mm3 (130-400); WHITE BLOOD COUNT 8.5 K/mm3 (4.8-10.8)
[2017-02-06 19:21] LABS: ADJUSTED CALCIUM 9.2 mg/dL (8.4-10.2); ALBUMIN 3.5 gm/dL (3.5-5.0); BILIRUBIN,TOTAL 4.3 mg/dL (0.0-1.0); CALCIUM 8.8 mg/dL (8.4-10.2); POTASSIUM 5.1 mmol/L (3.4-5.0); TOTAL PROTEIN 8.1 gm/dL (6.4-8.2)
[2017-02-06 19:23] LABS: HEMATOCRIT 31.9 % (37.0-47.0); HEMOGLOBIN 10.4 g/dl (12.5-16.0); MEAN CORPUSCULAR HEMOGLOBIN 30 pg (27.0-31.0)
[2017-02-06 19:24] LABS: CREATININE, serum 4.79 mg/dL (0.52-1.25)
[2017-02-06 19:29] LABS: COLLECTION METHOD CATHETER
[2017-02-06 19:33] LABS: TROPONIN-I 0.029 ng/mL (0.000-0.034)
[2017-02-06 19:40] LABS: PH 7 (5-8); SQUAMOUS EPITHELIAL None Seen /hpf; URINE APPEARANCE Turbid; URINE BACTERIA None Seen /hpf; URINE BILIRUBIN Negative (NEGATIVE); URINE BLOOD 2+ (NEGATIVE); URINE COLOR Blue; URINE GLUCOSE Negative (NEGATIVE); URINE KETONE Negative (NEGATIVE); URINE LEUKOCYTE ESTERASE 2+ (NEGATIVE); URINE PROTEIN(semi-quant) 2+ (NEGATIVE); URINE RBC 20-50 /hpf; URINE UROBILINOGEN Negative (NEGATIVE); URINE WBC >50 /hpf
[2017-02-06] MEDS ORDERED: LEVAQUIN 5500 MG/TA1 PO (21:49)
[2017-02-06 22:00] VITALS: BP 137/66; PULSE 80
[2017-02-07 00:02] LABS: MAGNESIUM 1.6 mg/dL (1.6-2.3); PHOSPHOROUS 4.5 mg/dL (2.5-4.5)
[2017-02-10] MEDS ORDERED: ELIQUIS 5MG PO (03:37)
[2017-02-10] MEDS ORDERED: NORCO 325 MG-51 TAB PO ×2 (03:38→03:39)
[2017-02-23] MEDS ORDERED: AMOXICILLIN/CLA1 TA1 PO (10:46)
[2017-02-23] MEDS ORDERED: ELIQUIS 2.5 PO (10:47)
[2017-02-23] MEDS ORDERED: NORCO 325 MG-51 TAB PO (11:27)
== END 2017-02-06 22:00 | disposition home or self-care (01) ==
LOC: COL.ER 18:14
PROVIDERS: Emergency Medicine
DX: N39.0 Urinary tract infection, site not specified (principal); K62.5 Hemorrhage of anus and rectum; N18.6 End stage renal disease; E87.5 Hyperkalemia; Z99.2 Dependence on renal dialysis; I48.91 Unspecified atrial fibrillation; Z79.01 Long term (current) use of anticoagulants; Z79.4 Long term (current) use of insulin